=== PATIENT | male | born 1995 | race African-American/Black ===

== ENCOUNTER → 2019-12-21 | Emergency (ER) | payer SELFPAY ==
[~2019-12-21] VITALS: Ht 188 cm; Wt 76.2 kg
[2019-12-21 07:16] VITALS: BP 122/81
[2019-12-21 08:51] LABS: Urine Bacteria NONE SEEN /hpf (None Seen); Urine Blood Negative /uL (Negative); Urine Mucus FEW (None Seen); Urine Specific Gravity 1.023 (1.001-1.035); Urine WBC 100 /hpf (0 - 3)
== END | disposition home or self-care (01) ==
LOC: ER 06:56
DX: N39.0 Urinary tract infection, site not specified (principal)
CPT/HCPCS: 81001